=== PATIENT | female | born 1950 | race Caucasian/White ===

== ENCOUNTER 2020-11-10 15:40 | Inpatient (IN) ==
[2020-11-10 17:09] LABS: Alanine Aminotransferase 17 Units/L (7-52); Albumin/Globulin Ratio 1.2 (1.1-2.2); Alkaline Phosphatase 83 Units/L (34-104); Aspartate Amino Transferase 24 Units/L (13-39); BUN/Creatinine Ratio 27 (6-26); Bilirubin,Total 0.6 mg/dL (0.3-1.0); Blood Urea Nitrogen 26 mg/dL (8-23); Calcium 9.3 mg/dL (8.6-10.3); Carbon Dioxide 24 mEq/L (23-29); Chloride 101 mEq/L (98-107); Globulin 3.3 g/dL (2.4-3.5); Glucose 246 mg/dL (70-105); Osmolality,Calculated 291 (280-300); Potassium 4.6 mEq/L (3.5-5.1); Sodium 134 mEq/L (136-145); Total Protein 7.3 g/dL (6.4-8.9); Troponin I < 0.03 ng/mL (< 0.04); eGFR For African Americans > 60 (> 60); eGFR For Non-African Americans 57 (> 60)
[2020-11-10 17:26] LABS: Basophils % 0.6 %; Eosinophils # 0.1 K/mcL (0.0-0.6); Eosinophils % 1.2 %; Hematocrit 36.7 % (35.3-44.9); Hemoglobin 12.6 g/dL (11.5-15.4); Immature Granulocytes % 0.3 % (0-4); Lymphocytes # 1.5 K/mcL (0.6-4.6); Lymphocytes % 22.7 %; Mean Corpuscular HGB Conc 34.3 g/dL (31.6-35.5); Mean Corpuscular Hemoglobin 29.3 pg (28.0-33.3); Mean Corpuscular Volume 85.3 fL (83.0-100.0); Mean Platelet Volume 10.9 fL (9.4-12.4); Monocytes # 0.4 K/mcL (0.0-1.3); Monocytes % 5.6 %; Neutrophils # 4.7 K/mcL (1.6-8.9); Platelet Count 184 K/mcL (140-400); Red Cell Distribution Width 12.7 % (11.5-14.5); Segmented Neutrophils % 69.6 %; White Blood Count 6.8 K/mcL (4.3-11.1)
[2020-11-10] MEDS ORDERED: Isovue-370 500 ML BOTTLE IVP ONE (19:26)
[2020-11-10] MEDS ORDERED: Aspirin 325 MG TABLET PO ONE (19:27)
[2020-11-10] MEDS ORDERED: Ondansetron 4 MG/2 ML VIAL IVP PRN (19:52)
[2020-11-10] MEDS ORDERED: Acetaminophen 325 MG TABLET PO PRN (19:52)
[2020-11-10] MEDS ORDERED: Melatonin 3 MG TABLET PO PRN (19:52)
[2020-11-10] MEDS ORDERED: Naloxone 0.4 MG/ML INJ IVP PRN (19:52)
[2020-11-10] MEDS ORDERED: *HR* Dextrose 50 % in Water (Vial) 50 ML VIAL IVP PRN (19:55)
[2020-11-10] MEDS ORDERED: D5% in Water 1,000 ML IVC PRN (19:55)
[2020-11-10] MEDS ORDERED: Dextrose Gel 15 GM/37.5 ML TUBE PO PRN ×2 (19:55)
[2020-11-10] MEDS ORDERED: Perflutren Lipid Microsphere 1.3 ML in 0.9 % Sodium Chloride 8.7 ML IVP PRN (19:56)
[2020-11-10] MEDS ORDERED: Insulin LISPRO 300 UNITS/3 ML VIAL SUBQ SCH (21:00)
[2020-11-10] MEDS ORDERED: *HR* Metoprolol 5 MG/5 ML VIAL IVP ONE (22:08)
[2020-11-10] MEDS: ALPRAZolam 0.5 MG TABLET PO PRN (23:03)
[2020-11-10 23:41] LABS: Folate > 22.3 ng/mL (3.0-16.0); Vitamin B12 594 pg/mL (250-1100)
[2020-11-11 02:54] LABS: Basophils % 0.6 %; Eosinophils # 0.1 K/mcL (0.0-0.6); Eosinophils % 1.2 %; Hematocrit 37.2 % (35.3-44.9); Hemoglobin 12.4 g/dL (11.5-15.4); Immature Granulocytes % 0.3 % (0-4); Lymphocytes # 2.5 K/mcL (0.6-4.6); Lymphocytes % 37.3 %; Mean Corpuscular HGB Conc 33.3 g/dL (31.6-35.5); Mean Corpuscular Hemoglobin 29.3 pg (28.0-33.3); Mean Corpuscular Volume 87.9 fL (83.0-100.0); Mean Platelet Volume 11.8 fL (9.4-12.4); Monocytes # 0.4 K/mcL (0.0-1.3); Monocytes % 6.3 %; Neutrophils # 3.7 K/mcL (1.6-8.9); Platelet Count 186 K/mcL (140-400); Red Blood Count 4.23 M/mcL (3.82-4.97); Red Cell Distribution Width 12.6 % (11.5-14.5); Segmented Neutrophils % 54.3 %; White Blood Count 6.7 K/mcL (4.3-11.1)
[2020-11-11 03:16] LABS: BUN/Creatinine Ratio 27 (6-26); Blood Urea Nitrogen 29 mg/dL (8-23); Calcium 9.2 mg/dL (8.6-10.3); Carbon Dioxide 28 mEq/L (23-29); Chloride 100 mEq/L (98-107); Chol/HDL Ratio 7.5 (0-4.9); Cholesterol 269 mg/dL (< 200); Glucose 295 mg/dL (70-105); HDL Cholesterol 36 mg/dL (40-59); LDL Cholesterol,Calculated 178 mg/dL (< 100); Osmolality,Calculated 297 (280-300); Sodium 135 mEq/L (136-145); Triglycerides 276 mg/dL (< 150); eGFR For African Americans > 60 (> 60); eGFR For Non-African Americans 50 (> 60)
[2020-11-11] MEDS ORDERED: hydrALAZINE 25 MG TABLET PO SCH (09:00)
[2020-11-11] MEDS ORDERED: Insulin DETEMIR 100 UNIT/ML X5UNITS SUBQ SCH ×2 (09:00→21:00)
[2020-11-11] MEDS: Aspirin Enteric Coated 81 MG Tablet PO SCH (09:38)
[2020-11-11] MEDS: atenoloL 50 MG TABLET PO SCH (09:38)
[2020-11-11] MEDS: Verapamil ER (24 HR) 120 MG TABLET.ER PO SCH (09:38)
[2020-11-11] MEDS: hydroCHLOROthiazide 25 MG TABLET PO SCH (09:38)
[2020-11-11] MEDS: Insulin LISPRO 300 UNITS/3 ML VIAL SUBQ SCH ×4 (09:39→21:42)
[2020-11-12 02:34] LABS: Hematocrit 36.9 % (35.3-44.9); Hemoglobin 12.3 g/dL (11.5-15.4); Mean Corpuscular HGB Conc 33.3 g/dL (31.6-35.5); Mean Corpuscular Hemoglobin 29.4 pg (28.0-33.3); Mean Corpuscular Volume 88.3 fL (83.0-100.0); Mean Platelet Volume 11.9 fL (9.4-12.4); Platelet Count 195 K/mcL (140-400); Red Blood Count 4.18 M/mcL (3.82-4.97); Red Cell Distribution Width 12.6 % (11.5-14.5)
[2020-11-12 02:47] LABS: Albumin 3.7 g/dL (3.5-5.7); Albumin/Globulin Ratio 1.3 (1.1-2.2); Bilirubin,Total 0.4 mg/dL (0.3-1.0); Calcium 9.1 mg/dL (8.6-10.3); Globulin 2.8 g/dL (2.4-3.5); Potassium 3.8 mEq/L (3.5-5.1); Total Protein 6.5 g/dL (6.4-8.9)
[2020-11-12 08:26] LABS: Estimated Average Glucose 249 mg/dl; Hemoglobin A1C 10.3 %
[2020-11-12] MEDS: Insulin LISPRO 300 UNITS/3 ML VIAL SUBQ SCH ×5 (09:23→20:53)
[2020-11-12] MEDS: Verapamil ER (24 HR) 120 MG TABLET.ER PO SCH (09:24)
[2020-11-12] MEDS: atenoloL 50 MG TABLET PO SCH (09:24)
[2020-11-12] MEDS: hydrALAZINE 25 MG TABLET PO SCH ×2 (09:24→20:52)
[2020-11-12] MEDS: hydroCHLOROthiazide 25 MG TABLET PO SCH (09:25)
[2020-11-12] MEDS: Aspirin Enteric Coated 81 MG Tablet PO SCH (09:25)
[2020-11-12] MEDS ORDERED: Insulin DETEMIR 100 UNIT/ML X5UNITS SUBQ SCH (21:00)
[2020-11-12] MEDS: ALPRAZolam 0.5 MG TABLET PO PRN (23:05)
[2020-11-13 06:08] LABS: Hematocrit 37.9 % (35.3-44.9); Hemoglobin 12.3 g/dL (11.5-15.4); Mean Corpuscular HGB Conc 32.5 g/dL (31.6-35.5); Mean Corpuscular Hemoglobin 29.2 pg (28.0-33.3); Mean Platelet Volume 11.7 fL (9.4-12.4); Platelet Count 172 K/mcL (140-400); Red Blood Count 4.21 M/mcL (3.82-4.97); Red Cell Distribution Width 12.8 % (11.5-14.5); White Blood Count 7.4 K/mcL (4.3-11.1)
[2020-11-13 06:33] LABS: Albumin 3.6 g/dL (3.5-5.7); Albumin/Globulin Ratio 1.3 (1.1-2.2); Bilirubin,Total 0.5 mg/dL (0.3-1.0); Calcium 9.4 mg/dL (8.6-10.3); Globulin 2.7 g/dL (2.4-3.5); Potassium 3.9 mEq/L (3.5-5.1); Total Protein 6.3 g/dL (6.4-8.9)
[2020-11-13] MEDS: atenoloL 50 MG TABLET PO SCH (07:35)
[2020-11-13] MEDS: hydrALAZINE 25 MG TABLET PO SCH (07:36)
[2020-11-13] MEDS: Aspirin Enteric Coated 81 MG Tablet PO SCH (07:36)
[2020-11-13] MEDS: Verapamil ER (24 HR) 120 MG TABLET.ER PO SCH (07:36)
[2020-11-13] MEDS: Insulin LISPRO 300 UNITS/3 ML VIAL SUBQ SCH ×2 (07:38→11:47)
[2020-11-13] MEDS: hydroCHLOROthiazide 25 MG TABLET PO SCH (07:38)
[2020-11-13 11:44] VITALS: BP 127/73
== END 2020-11-13 16:15 | disposition home or self-care (01) | DRG 304 ==
LOC: 3BNU 15:40 → EMEROOARM 15:40 → SUATTDRO 19:36 → 3BNU 20:35
PROVIDERS: ADMIT Internal Medicine; ATTEND Registered Nurse